=== PATIENT | female | born 1960 | race Caucasian/White ===

== ENCOUNTER 2023-03-02 13:01 | Outpatient (CLI) | payer BC, SELFPAY ==
--- NOTE | 2023-03-02 13:30 | CRLHL7_ITS ---
For Patients: As a result of the Century Cures Act, medical imaging exams and procedure reports are released immediately into your electronic medical record. You may view this report before your referring provider. If you have questions, please contact your health care provider. DXA BONE MINERAL DENSITY STUDY Reason for exam: Pain in left foot. Current height (in): 64. Weight (lb): 185. Menopause age: 55. Ethnicity: White. 1. Have you had a previous hip or vertebral fracture? No. 2. Have you had any fractures during your adult life which did not result from significant trauma (e.g., auto accident)? No. 3. Did either of your parents have a hip fracture? No. 4. Do you smoke? No. 5. Have you ever taken Glucocorticoids? No. 6. Do you have rheumatoid arthritis? No. 7. Do you have secondary osteoporosis? No. 8. Do you drink 3 or more alcoholic drinks per day? No. 9. Are you being treated for osteoporosis? No. 10. Have you ever taken any of the following medications: Actonel, Evista, Fosamax, Miacalcin, Reclast, Boniva, Forteo, HRT (i.e., estrogen/hormone therapy), Protelos, Prolia, Vitamin D, Calcium, other ??? please specify. ANSWER: No. 11. Do you have any of the following medical conditions: Anorexia or bulimia, asthma or emphysema, end stage renal disease, hyperparathyroidism, any seizure disorders, cancer, inflammatory bowel diseases, hysterectomy, other ??? please specify. ANSWER: No. 12. What was your maximum height (inches)? 64. 13. Do you perform weight bearing exercise regularly? No. 14. Do you regularly consume dairy products? Yes. 15. Do you drink caffeinated beverages? Yes. If female: 16. At what age did your period start? 15. 17. Are you premenopausal? No. 18. How many full-term pregnancies have you had? 4. 19. Have you ever missed your period for more than 6 months in a row (not including or menopause)? No. TECHNIQUE: Bone mineral density study was performed using the [employer]. FINDINGS: The results of the study expressed as bone mineral density (BMD) are as follows: Lumbar spine L1 to L4: BMD: 0.864 g/cm2. T-score: -1.7. Z-score: -0.2 Neck Left: BMD: 0.709 g/cm2. T-score: -1.3. Z-score: 0.1 Right: BMD: 0.762 g/cm2. T-score: -0.8. Z-score: 0.6 Total Left: BMD: 0.828 g/cm2. T-score: -0.9. Z-score: 0.1 Right: BMD: 0.891 g/cm2. T-score: -0.4. Z-score: 0.6 IMPRESSION: Osteopenia. FRAX 10-year Fracture Risk Major Osteoporotic Fracture: 7.3% Hip Fracture: 0.5% Reported Risk Factors: [place] () Neck BMD=0.709, BMI= 31.8 Jorge Lynn M.D. Diagnostic Radiologist [email or web address] [email or web address]/Dictated by: Jorge Lynn MD @ 03/04/2023 10:39:00 AM (Electronically Signed)
== END 2023-03-02 13:02 | disposition home or self-care (01) ==
LOC: RAD 13:02
PROVIDERS: PCP Emergency Medicine; Visit Provider Family Medicine
DX: M79.672 Pain in left foot (principal); M85.89 Other specified disorders of bone density and structure, multiple sites
CPT/HCPCS: 77080

== ENCOUNTER 2023-03-16 07:54 | Outpatient (CLI) | payer BC, SELFPAY | END 2023-03-16 07:55 | disposition home or self-care (01) | LOC: NFLDREF 03-17 09:18 | PROVIDERS: PCP Emergency Medicine; Referring Provider Emergency Medicine; Visit Provider Emergency Medicine | DX: Z13.220 Encounter for screening for lipoid disorders (principal); Z13.1 Encounter for screening for diabetes mellitus | CPT/HCPCS: 80048; 80061 ==

== ENCOUNTER 2023-05-19 11:05 | Outpatient (CLI) | payer BC, SELFPAY ==
--- NOTE | 2023-05-19 11:30 | CRLHL7_ITS ---
For Patients: As a result of the Century Cures Act, medical imaging exams and procedure reports are released immediately into your electronic medical record. You may view this report before your referring provider. If you have questions, please contact your health care provider. BILATERAL SCREENING MAMMOGRAM WITH COMPUTER-AIDED DETECTION AND TOMOSYNTHESIS TECHNIQUE: CC and MLO views were obtained. These mammographic images have been obtained using full-field digital technique. These mammographic images were interpreted with the benefit of computer-aided detection. Breast Tomosynthesis was used in this interpretation. COMPARISON FILM: 03/30/18, 01/11/12. FINDINGS: There are scattered areas of fibroglandular density IMPRESSION: There is no radiographic evidence for malignancy. ASSESSMENT: BI-RADS Category 1: Negative RECOMMENDATION: Routine screening mammogram in 1 year. A lay language report of this examination will be provided to the patient. Jorge Lynn M.D. Diagnostic Radiologist [email or web address] Transcribed: 4:59 [email or web address] [email or web address]/Dictated by: Jorge Lynn MD @ 05/19/2023 1:06:00 PM (Electronically Signed)
== END 2023-05-19 11:06 | disposition home or self-care (01) ==
LOC: MAMMO 11:06
PROVIDERS: PCP Emergency Medicine; Visit Provider Emergency Medicine
DX: Z12.31 Encounter for screening mammogram for malignant neoplasm of breast (principal)
CPT/HCPCS: 77063; 77067

== ENCOUNTER 2024-11-13 13:25 | Outpatient (CLI) | payer BC, SELFPAY | END 2024-11-13 13:26 | disposition home or self-care (01) | LOC: NFLDREF 11-15 16:37 | PROVIDERS: PCP Emergency Medicine; Referring Provider Emergency Medicine; Visit Provider Physician Assistant | DX: R30.0 Dysuria (principal); N39.0 Urinary tract infection, site not specified; R35.0 Frequency of micturition | CPT/HCPCS: 87086 ==